=== PATIENT | female | born 1985 | race Caucasian/White ===

== ENCOUNTER 2016-07-31 08:37 | Emergency (ER) | payer OTHER, SELFPAY ==
[~2016-07-31 08:37] MED LIST: BENTYL20 MG PO; CLINDAMYCIN HC300 M2 PO; CYCLOBENZAPRINE10 M1 PO; MEDROL4 M2 PO; NORCO 5-325 TA1 EACH PO; NORCO 5/325 TAB1 TAB PO; VALIUM10 M1 PO
[2016-07-31] MEDS ORDERED: CYCLOBENZAPRINE10 M1 PO (10:59)
[2016-07-31] MEDS ORDERED: IBUPROFEN600 M1 PO (10:59)
[2016-07-31] MEDS ORDERED: NORCO 5-325 TA1 EACH PO (11:21)
== END 2016-07-31 11:27 ==
LOC: EDMED 08:37
DX: M54.5 Low back pain (principal); G89.29 Other chronic pain; Z90.49 Acquired absence of other specified parts of digestive tract; Z90.89 Acquired absence of other organs; Z98.890 Other specified postprocedural states; F17.200 Nicotine dependence, unspecified, uncomplicated
CPT/HCPCS: J1885; J2270